=== PATIENT | female | born 1995 | race Caucasian/White ===

== ENCOUNTER 2018-03-16 23:55 | Inpatient (IN) | payer OTHER ==
[2018-03-17] MEDS: DEXTROSE 5%-LACTATED RINGERS 1,000 ML IV SCH ×3 (01:15→14:00)
[2018-03-17 01:32] VITALS: BMI 30.4
--- NOTE | 2018-03-17 01:49 | HP ---
Past Medical History - Primary Care Physician PCP:: Alexus Deal - Admission Chief Complaint: 22 yrs , 39.5/7 , srom since 11.30 pm & onset of UC at same time History of Present Illness: care at , [facility] wt gain 17 lbs panel :08/18/17 O pos, Hbsag neg, Rpr nr, Rubella immune, Hiv neg, gc / ct neg, lead neg, Siickle neg, CF screen neg , Urine culture no growth 12/24/17 : Quantiferon neg, Pngt 76, Rpr nr 02/19/18 Gbs neg, Gc/ct neg, h/h 12.7/37.8, Plt 344, Hiv neg h/o 09/07/17 sono twins : Ababy 9.1 wks, demise . 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 07/24/14 9'.0"in [place] ) ...Term: 2 ...: 0 ...Spon : 0 ...Induced : 0 ...Multiple Gestation: 0 ...LMP: 06/12/17 ... Weeks Gestation by Dates: 39.5 ...EDC by Dates: 03/19/18 ...EDC by Sono: 03/19/18 (39.5 weeks ) Heme/Onc: No: Anemia Infectious Disease: No: HIV, STD's, Tuberculosis Psych: Yes: Depression (not on any meds) - Past Surgical History Past Surgical History: Yes: None Hx Myomectomy: No Hx Transabdominal Cerclage: No - Smoking History Smoking history: Never smoked Have you smoked in the past 12 months: No - Alcohol/Substance Use Hx Alcohol Use: No History of Substance Use: reports: None Home Medications - Allergies Allergies/Adverse Reactions: Allergies Allergy/AdvReac Type Severity Reaction Status Date / Time No Known Drug Allergies Allergy Verified 03/17/18 02:43 shrimp Allergy Severe Difficulty Uncoded 03/17/18 06:48 Breathing - Home Medications Home Medications: Ambulatory Orders Vit/Iron Fum/Folic AC [ Tablet] 1 tab PO DAILY 01/14/18 Physical Exam - Maternity Vital Signs: Vital Signs Temperature 98.1 F 03/17/18 00:54 Pulse Rate 86 03/17/18 00:54 Respiratory Rate 18 03/17/18 00:54 Blood Pressure 138/79 03/17/18 00:54 O2 Sat by Pulse Oximetry (%) Constitutional: Yes: No Distress, Obese Eyes: Yes: WNL HENT: Yes: WNL, Normocephalic Neck: Yes: WNL Cardiovascular: Yes: WNL Lungs: Clear to auscultation Breast(s): Yes: WNL - Abdominal Exam/OB Fundal Height: 34 Number of Fetuses: Single Presentation: Vertex Contractions: Yes Regularity: Irregular Intensity: Mild Monitor Mode: External Heart Rate (range): 130-140 Heart Rate Location: [facility] Category: I Accelerations: Uniform Decelerations: None - Vaginal Exam/OB Vaginal Bleediing: No Speculum Exam: No Dilatation (cm): 1cm Effacement (%): 40 Amniotic Membrane Status: Ruptured (SROM , clear) Nitrazine Test: Positive Amniotic Fluid: Yes: Clear Presentation: Vertex/Position Station: -3 - Physical Exam Musculoskeletal: Yes: WNL Extremities: Yes: WNL. No: Calf Tenderness Edema: No Deep Tendon Reflex Grade: Normal +2 ...Motor Strength: WNL Psychiatric: Yes: WNL, Alert, Oriented - Labs Lab Results: Laboratory Tests 03/17/18 03/17/18 03/17/18 01:53 01:53 01:53 WBC 6.5 RBC 3.53 L Hgb 12.2 Hct 33.9 Plt Count 297 Neutrophils % 50.7 Lymphocytes % 40.9 H PT with INR 10.90 INR 0.96 PTT (Actin FS) 28.7 Sodium Potassium Chloride Carbon Dioxide BUN Random Glucose RPR Titer Blood Type O POSITIVE Antibody Screen Negative 03/17/18 03/17/18 01:53 01:53 WBC RBC Hgb Hct Plt Count Neutrophils % Lymphocytes % PT with INR INR PTT (Actin FS) Sodium 140 Potassium 3.8 Chloride 108 H Carbon Dioxide 20 L BUN 7 Random Glucose 106 RPR Titer Nonreactive Blood Type Antibody Screen Problem List - Problems (1) with 39 completed weeks gestation Code(s): Z3A.39 - 39 WEEKS GESTATION OF (2) SROM (spontaneous rupture of membranes) Code(s): LYI6372 - (3) Obesity (BMI 30.0-34.9) Code(s): E66.9 - OBESITY, UNSPECIFIED Assessment/Plan 22 yrs , 39.5/7 weeks SROM , states uc irregular. gbs neg , possible IUGR Plan trial of vaginal delivery. cervidil & or pitocin induction . 100 pm 03/17/18 cx 1 cm /50 %/MR/Vx -3 / FHR cat-1 , ireegular . pt ambulating. Plan transfer the labor management to Doctor environmental health and safety manager Dr Butler
[2018-03-17 02:16] LABS: BASO % 0.7 % (0-2.0); EOS % 0.7 % (0-4.5); HEMATOCRIT 33.9 % (32.4-45.2); HEMOGLOBIN 12.2 GM/dL (10.7-15.3); LYMPH % 40.9 % (8-40); MCH 34.6 pg (25.7-33.7); MEAN CELL VOLUME 95.9 fl (80-96); MEAN PLT VOLUME 7.9 fl (7.5-11.1); NEUT % 50.7 % (42.8-82.8); PLATELET COUNT 297 K/MM3 (134-434); RBC 3.53 M/mm3 (3.60-5.2); RDW 12.1 % (11.6-15.6); WHITE BLOOD COUNT 6.5 K/mm3 (4.0-10.0)
[2018-03-17 02:26] LABS: INR 0.96 (0.82-1.09); PROTHROMBIN TIME (PATIENT) 10.9 SEC (9.7-13.0)
[2018-03-17] MEDS ORDERED: SODIUM PHOSPHATE/NA BIPHOS 133 ML ENEMA PR ONE (02:27)
[2018-03-17 02:29] LABS: ACTIVATED PTT 28.7 SECONDS (26.9-34.4)
[2018-03-17 02:35] LABS: ANION GAP 12 (8-16); BLOOD UREA NITROGEN 7 mg/dL (7-18); CALCIUM 8.6 mg/dL (8.5-10.1); CHLORIDE 108 mmol/L (98-107); CO2 20 mmol/L (21-32); CREATININE 0.5 mg/dL (0.55-1.02); GLUCOSE,RANDOM 106 mg/dL (74-106); POTASSIUM 3.8 mmol/L (3.5-5.1); SODIUM 140 mmol/L (136-145)
[2018-03-17] MEDS ORDERED: DINOPROSTONE 10 MG VAGINAL SUPPOSITORY VG ONE (02:40)
[2018-03-17] MEDS ORDERED: OXYTOCIN 30 UNITS in 0.9% NS 30 UNIT/500 ML INFUS.BAG IVPB ONE (15:48)
[2018-03-17] MEDS ORDERED: OXYTOCIN 30 UNITS in 0.9% NS 30 UNIT/500 ML INFUS.BAG IVPB SCH (16:00)
[2018-03-17] MEDS ORDERED: AMPICILLIN SODIUM 2 GM VIAL ONE (16:46)
[2018-03-17] MEDS ORDERED: AMPICILLIN - 2 GM in SODIUM CHLORIDE 100 ML IVPB ONE (17:30)
[2018-03-17] MEDS ORDERED: PROMETHAZINE HCL 25 MG/1 ML VIAL ONE (21:11)
[2018-03-17] MEDS ORDERED: BUTORPHANOL TARTRATE 1 MG/ML VIAL ONE ×2 (21:11)
[2018-03-17] MEDS: AMPICILLIN - 1 GM in SODIUM CHLORIDE 100 ML IVPB SCH (21:30)
[2018-03-17] MEDS ORDERED: BUTORPHANOL TARTRATE 1 MG/ML VIAL IM PRN (21:31)
[2018-03-17] MEDS ORDERED: PROMETHAZINE HCL 25 MG/1 ML VIAL IM PRN (21:32)
[2018-03-18] MEDS ORDERED: LIDOCAINE HCL 1% PRESERVATIVE FREE - 30ML VIAL ONE (00:59)
[2018-03-18] MEDS ORDERED: OXYTOCIN 20 UNITS in 0.9% NS 20 UNIT/1,000 ML INFUS.BAG IV ONE ×2 (00:59→03:01)
[2018-03-18] MEDS ORDERED: WITCH HAZEL 50% (TUCKS) 40 PAD/JAR PAD TP PRN (01:36)
[2018-03-18] MEDS ORDERED: BENZOCAINE 20% 57 GM BOTTLE TP PRN (01:36)
[2018-03-18] MEDS ORDERED: BISACODYL 10 MG SUPP.RECT RC PRN (01:36)
[2018-03-18] MEDS ORDERED: BENZOCAINE 28 GM HEMORRHOIDAL OINTMENT TP PRN (01:36)
[2018-03-18] MEDS ORDERED: METHYLERGONOVINE MALEATE 0.2 MG/1 ML AMP IM PRN (01:36)
--- NOTE | 2018-03-18 01:39 | PN ---
Delivery - Delivery Vaginal Delivery: Spontaneous Type of Anesthesia: Local Episiotomy/Laceration: 1st degree EBL (cc): 300 Delivery, Single - Feeding Plan Initial Plan: Elected not to breastfeed exclusively throughout hospitalization Remarks - Remarks Remarks: Normal spontaneous vaginal delivery of a live infant girl over first degree laceration. Nose / Oropharynx suctioned @ perineum. Cord clamped and cut. Placenta expelled spontaneously intact. Laceration repaired with 2.0 Biosyn.
[2018-03-18] MEDS ORDERED: OXYTOCIN 20 UNITS in 0.9% NS 20 UNIT/1,000 ML INFUS.BAG IV SCH (01:45)
[2018-03-18] MEDS ORDERED: IBUPROFEN 600 MG TABLET (FP) PO ONE (02:44)
[2018-03-18] MEDS ORDERED: ACETAMINOPHEN 325 MG TABLET (FP) ONE (02:44)
[2018-03-18] MEDS: IBUPROFEN 600 MG TABLET (FP) PO PRN ×2 (02:55→12:41)
[2018-03-18] MEDS: ACETAMINOPHEN 325 MG TABLET (FP) PO PRN (02:55)
[2018-03-18] MEDS: DEXTROSE 5%-LACTATED RINGERS 1,000 ML IV SCH (04:52)
[2018-03-18] MEDS: AMPICILLIN - 1 GM in SODIUM CHLORIDE 100 ML IVPB SCH (06:39)
[2018-03-18] MEDS: FERROUS SO4 325 MG TABLET (FP) PO SCH ×3 (07:44→16:52)
[2018-03-18] MEDS: PRENATAL VITAMINS W/ FOLIC ACID TABLET (FP) PO SCH (09:56)
[2018-03-19] MEDS: IBUPROFEN 600 MG TABLET (FP) PO PRN ×3 (04:08→22:55)
[2018-03-19] MEDS: ACETAMINOPHEN 325 MG TABLET (FP) PO PRN ×3 (04:09→22:55)
[2018-03-19 08:16] LABS: BASO % 0.7 % (0-2.0); EOS % 0.9 % (0-4.5); HEMATOCRIT 32.5 % (32.4-45.2); HEMOGLOBIN 11.7 GM/dL (10.7-15.3); LYMPH % 30.4 % (8-40); MCH 34.7 pg (25.7-33.7); MCHC 35.9 g/dl (32.0-36.0); MEAN CELL VOLUME 96.9 fl (80-96); MONO % 5.6 % (3.8-10.2); NEUT % 62.4 % (42.8-82.8); PLATELET COUNT 243 K/MM3 (134-434); RBC 3.36 M/mm3 (3.60-5.2); RDW 12.6 % (11.6-15.6); WHITE BLOOD COUNT 10.5 K/mm3 (4.0-10.0)
[2018-03-19] MEDS ORDERED: DIPHTH,PERTUSS(ACELL),TET 0.5 ML DISP.SYRIN IM ONE (10:00)
[2018-03-19] MEDS ORDERED: FLU VACC QS2017-18 36MOS UP/PF 60 MCG/0.5 ML SYRINGE IM ONE (10:00)
[2018-03-19] MEDS: FERROUS SO4 325 MG TABLET (FP) PO SCH ×3 (10:36→17:05)
[2018-03-19] MEDS: PRENATAL VITAMINS W/ FOLIC ACID TABLET (FP) PO SCH (10:48)
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
[2018-03-19] MEDS ORDERED: SENNOSIDES/DOCUSATE COMBO (SENNA PLUS) TABLET (UD) PO PRN (22:00)
[2018-03-20] MEDS: FERROUS SO4 325 MG TABLET (FP) PO SCH ×2 (08:17→11:45)
[2018-03-20 08:37] VITALS: BP 119/67; PULSE 72; TEMP 98.2
[2018-03-20] MEDS: PRENATAL VITAMINS W/ FOLIC ACID TABLET (FP) PO SCH (09:03)
== END 2018-03-20 12:10 | disposition home or self-care (01) | DRG 560 ==
LOC: JLDR 23:55 → J3W 03-18 03:30
PROVIDERS: ADMIT Obstetrics & Gynecology; ATTEND Obstetrics & Gynecology
PROC: 3E0P7VZ Introduction of Hormone into Female Reproductive, Via Natural or Artificial Opening (ICD-10-PCS; 2018-03-17)
PROC: 0HQ9XZZ Repair Perineum Skin, External Approach (ICD-10-PCS; principal; 2018-03-18)
PROC: 0W8NXZZ Division of Female Perineum, External Approach (ICD-10-PCS; 2018-03-18)
PROC: 10E0XZZ Delivery of Products of Conception, External Approach (ICD-10-PCS; 2018-03-18)
DX: O70.0 First degree perineal laceration during delivery (principal); Z3A.39 39 weeks gestation of pregnancy; O99.213 Obesity complicating pregnancy, third trimester; Z68.30 Body mass index [BMI] 30.0-30.9, adult; E66.9 Obesity, unspecified; Z37.0 Single live birth
CPT/HCPCS: 36415; 59409; 80048; 85025; 85610; 85730; 86593; 86850; 86900; 86901; 90686; 90715; G0008

== ENCOUNTER 2018-04-17 12:50 | Emergency (ER) | payer OTHER ==
[2018-04-17 12:56] VITALS: BMI 28.7
--- NOTE | 2018-04-17 13:00 | PDOC ---
History of Present Illness - General Chief Complaint: Pain Stated Complaint: PAIN Time Seen by Provider: 04/17/18 12:59 - History of Present Illness Initial Comments: 04/17/18 12:59 Ms. Crow Blancas is a 23 yo female w/ no pmh who presents for evaluation of 1 week history of intermittent constipation (last BM 3 days ago) and severe rectal pain when attempting to urinate or defecate. Patient was evaluated in urgent care earlier today and sent here for further evaluation. Patient is and gave to her latest child approximately 1 month ago. The patient denies chest pain, shortness of breath, headache and dizziness. Denies fever, chills, nausea, vomit, and diarrhea. Denies dysuria, frequency, urgency and hematuria. Allergies: NKDA Past History - Past Medical History Allergies/Adverse Reactions: Allergies Allergy/AdvReac Type Severity Reaction Status Date / Time No Known Drug Allergies Allergy Verified 04/17/18 12:52 shrimp Allergy Severe Difficulty Uncoded 04/17/18 12:52 Breathing Home Medications: Ambulatory Orders NK [No Known Home Medication] 04/17/18 Asthma: No Cancer: No Cardiac Disorders: No COPD: No Diabetes: No HTN: No Seizures: No Thyroid Disease: No - Suicide/Smoking/Psychosocial Hx Smoking History: Never smoked Have you smoked in the past 12 months: No Information on smoking cessation initiated: No Hx Alcohol Use: No Drug/Substance Use Hx: No Substance Use Type: None Hx Substance Use Treatment: No Review of Systems - Review of Systems Comments:: 04/17/18 13:00 GENERAL/CONSTITUTIONAL: No fever or chills. No weakness. HEAD, EYES, EARS, NOSE AND THROAT: No change in vision. No ear pain or discharge. No sore throat. CARDIOVASCULAR: No chest pain or shortness of breath RESPIRATORY: No cough, wheezing, or hemoptysis. GASTROINTESTINAL: +Rectal pain while attempting to urinate/defacate as described. No nausea, vomiting, or diarrhea. GENITOURINARY: No dysuria, frequency, or change in urination. MUSCULOSKELETAL: No joint or muscle swelling or pain. No neck or back pain. SKIN: No rash NEUROLOGIC: No headache, vertigo, loss of consciousness, or change in strength/ sensation. ENDOCRINE: No increased thirst. No abnormal weight change HEMATOLOGIC/LYMPHATIC: No anemia, easy bleeding, or history of blood clots. ALLERGIC/IMMUNOLOGIC: No hives or skin allergy. *Physical Exam - Vital Signs Last Vital Signs Temp Pulse Resp BP Pulse Ox 98.3 F 90 18 130/77 100 04/17/18 12:54 04/17/18 12:54 04/17/18 12:54 04/17/18 12:54 04/17/18 12:54 - Physical Exam Comments: 04/17/18 13:00 GENERAL: Awake, alert, and fully oriented, in no acute distress HEAD: No signs of trauma, normocephalic, atraumatic EYES: PERRLA, EOMI, sclera anicteric, conjunctiva clear ENT: Auricles normal inspection, hearing grossly normal, nares patent, oropharynx clear without exudates. Moist mucosa NECK: Normal ROM, supple, no lymphadenopathy, JVD, or masses LUNGS: No distress, speaks full sentences, clear to auscultation bilaterally HEART: Regular rate and rhythm, normal S1 and S2, no murmurs, rubs or gallops, peripheral pulses normal and equal bilaterally. ABDOMEN: Soft, nontender, normoactive bowel sounds. No guarding, no rebound. No masses EXTREMITIES: Normal inspection, Normal range of motion, no edema. No clubbing or cyanosis. NEUROLOGICAL: Cranial nerves II through XII grossly intact. Normal speech, normal gait, no focal sensorimotor deficits SKIN: Warm, Dry, normal turgor, no rashes or lesions noted. RECTAL: Patient reporting severe pain during rectal exam. Small pinpoint skin tag noted to 12 o'clock position. No visible hemorrhoids or fissures. ED Treatment Course - LABORATORY CBC & Chemistry Diagram: 04/17/18 13:55 04/17/18 13:55 Medical Decision Making - Medical Decision Making 04/17/18 15:18 Ms. Crow Blancas is a 23 yo female w/ no significant pmh who presents for evaluation of constipation and pain. With exam concerning for pain on rectal examination, CT abdomen/pelvis ordered for evaluation of possible perianal abscess. 04/17/18 17:03 CT revealed "moderate amount of fecal residue in distal sigmoid colon compatible w/ constipation; cannot rule out impacation. Suggestion of mild thickening of rectosigmoid junction wall. Also, minimal perianal stranding w/ out gross evidence of collection or abcess." 04/17/18 17:28 Discharging patient to home w/ instructions for constipation relief. Patient will follow-up with PCP next week for further evaluation. *DC/Admit/Observation/Transfer Diagnosis at time of Disposition: Constipation Qualifiers: Constipation type: unspecified constipation type Qualified Code(s): K59.00 - Constipation, unspecified - Discharge Dispostion Disposition: HOME - Referrals Referrals: Josefina Starr NP [Primary Care Provider] - - Patient Instructions Printed Discharge Instructions: DI for Constipation Additional Instructions: Please follow-up with your primary care provider on Thursday for further evaluation. Return to ER if any increase in pain, fever, chills, bleeding, or other concerning symptoms. Use below treatment for constipation relief. 1. Drink copious amounts of water 2. Take over the counter fiber supplements as tolerated 3. Take Miralax daily following package instructions for the next two weeks or until stooling normally. We hope you feel better soon. Por favor haz nestor ambrose con guzman doctora primaria para mirela Cynthia para nestor evaluacin adicional. Regrese al departamento de emergencias si el dolor aumenta , o si desarollas fiebre, escalofros, sangrado o otros sntomas preocupantes. Usa el tratamiento explicado abajo para el alivio del estreimiento. 1. Arianna copiosas cantidades de agua 2. [place] los suplementos de fibra que se puede comprar en la farmacia segn lo tolera. 3. [place] Miralax diariamente siguiendo las instrucciones del paquete rosio las prximas dos semanas o hasta que se evacue normalmente. Esperamos que te sientas mejor pronto. Print Language: LATVIAN - Post Discharge Activity
[2018-04-17 14:06] LABS: BASO % 0.9 % (0-2.0); EOS % 0.4 % (0-4.5); HEMATOCRIT 38.4 % (32.4-45.2); HEMOGLOBIN 13.4 GM/dL (10.7-15.3); LYMPH % 46.2 % (8-40); MCH 33.1 pg (25.7-33.7); MEAN CELL VOLUME 94.5 fl (80-96); MEAN PLT VOLUME 7.4 fl (7.5-11.1); MONO % 4.9 % (3.8-10.2); NEUT % 47.6 % (42.8-82.8); PLATELET COUNT 341 K/MM3 (134-434); RBC 4.06 M/mm3 (3.60-5.2); RDW 11.6 % (11.6-15.6); WHITE BLOOD COUNT 4.7 K/mm3 (4.0-10.0)
[2018-04-17] MEDS ORDERED: ACETAMINOPHEN 500 MG TABLET (FP) PO ONE (14:06)
[2018-04-17] MEDS ORDERED: ACETAMINOPHEN 325 MG TABLET (FP) ONE (14:14)
[2018-04-17 14:35] LABS: ALBUMIN 4.3 g/dl (3.4-5.0); ALK PHOS 109 U/L (45-117); ANION GAP 8 (8-16); BILIRUBIN,TOTAL 0.3 mg/dL (0.2-1.0); BLOOD UREA NITROGEN 11 mg/dL (7-18); CALCIUM 9.2 mg/dL (8.5-10.1); CHLORIDE 107 mmol/L (98-107); CO2 26 mmol/L (21-32); CREATININE 0.9 mg/dL (0.55-1.02); GLUCOSE,RANDOM 83 mg/dL (74-106); POTASSIUM 4.3 mmol/L (3.5-5.1); SGOT/AST 16 U/L (15-37); SGPT/ALT 17 U/L (12-78); SODIUM 141 mmol/L (136-145); TOT PROT 8.2 g/dl (6.4-8.2)
--- NOTE | 2018-04-17 15:09 | PDOC ---
Attending Attestation - HPI HPI: 04/17/18 15:12 The patient is a 23 year old female with a significant PMH of prior exertional hemorrhoid who presents to the emergency department with 1 week of constipation and difficulty urinating and 3 days of of rectal bleeding. The patient reports intermittent constipation over the past week which has become constant over the past 3 days, and notes padmini red rectal bleeding and a burning sensation associated with exertion when attempting to move her bowels. She also notes she has had difficulty urinating secondary to cramping, The patient denies hematuria. She denies fevers or chills. She denies nausea, vomiting, or diarrhea. Allergies: NKDA PCP: Dr. Josefina Starr - Physicial Exam PE: 04/17/18 15:13 Vitals: Triage Vital signs reviewed General Appearance: no acute distress, well nourished well developed, Cardiac: Regular rate and rhythm, no murmurs, no rubs, no gallops, Lungs: Clear to auscultation bilateral, good air movement bilaterally, Abdomen: Soft, nondistended, normal bowel sounds, nontender to palpation Rectal: Normal. Extremities: Full range of motion to all extremities, no cyanosis, clubbing, or edema Skin: Warm and dry, no rashes or lesions, no petechiae Neuro: AOX3; Cranial Nerves 2-12 grossly intact, Strength intact to all extremities, Sensation intact to all extremities Psych: normal mood, normal affect - Medical Decision Making 04/17/18 15:12 The patient is a 23 year old female with a significant PMH of prior exertional hemorrhoid who presents to the emergency department with 1 week of constipation and difficulty urinating and 3 days of of rectal bleeding. The patient reports intermittent constipation over the past week which has become constant over the past 3 days, and notes padmini red rectal bleeding and a burning sensation associated with exertion when attempting to move her bowels. She also notes she has had difficulty urinating secondary to cramping, The patient denies hematuria. She denies fevers or chills. She denies nausea, vomiting, or diarrhea. Allergies: NKDA PCP: Dr. Josefina Starr <Adolfo Burks - Last Filed: 04/17/18 15:13> - Resident Resident Name: Prosper Napier - ED Attending Attestation I have performed the following: I have examined & evaluated the patient, The case was reviewed & discussed with the resident, I agree w/resident's findings & plan, Exceptions are as noted - Medical Decision Making 23 years old status post with severe rectal pain on examination. External fissure noted. Given tenderness on internal examination decision made to perform CT. CT abdomen and pelvis demonstrate moderate constipation with no evidence of perianal abscess Patient placed on aggressive stool softener regimen and will follow up with her primary care provider. Patient advised multiple times not to breast-feed given that she was given IV contrast for the next 24 hours Findings, need for follow-up, strict return instructions discussed with patient. <Laureano Leon - Last Filed: 04/17/18 18:27>
[2018-04-17] MEDS ORDERED: LIDOCAINE HCL 2% JELLY (30 ML/TUBE) TP ONE (15:39)
[2018-04-17] MEDS ORDERED: KETOROLAC TROMETHAMINE 15 MG/ML VIAL IVPUSH ONE (15:39)
[2018-04-17] MEDS ORDERED: LIDOCAINE HCL 2% JELLY (5 ML/TUBE) ONE (15:45)
[2018-04-17] MEDS ORDERED: KETOROLAC TROMETHAMINE 15 MG/ML VIAL ONE (15:46)
[2018-04-17 17:19] VITALS: BP 105/58; PULSE 68; TEMP 98.6
== END 2018-04-17 17:45 | disposition home or self-care (01) ==
LOC: JER 12:50
PROC: 3E0333Z Introduction of Anti-inflammatory into Peripheral Vein, Percutaneous Approach (ICD-10-PCS; principal; 2018-04-17)
DX: K59.00 Constipation, unspecified (principal); O87.2 Hemorrhoids in the puerperium
CPT/HCPCS: 36415; 74177-TC; 80053; 82272; 84703; 85025; 96374; 99282-25

== ENCOUNTER 2020-09-02 12:51 | Emergency (ER) | payer OTHER ==
[2020-09-02 12:57] VITALS: BP 117/68; PULSE 99; TEMP 98; BMI 30.9
--- NOTE | 2020-09-02 13:36 | PDOC ---
History of Present Illness - General Chief Complaint: Vaginal Sxs Stated Complaint: 24WKS/HEMATURIA Time Seen by Provider: 09/02/20 13:20 History Source: Patient Exam Limitations: No Limitations - History of Present Illness Initial Comments: 09/02/20 13:30 Patient is a 25-year-old female with no past medical history here with complaints of frequency and dysuria x2 days. States she is had a foul odor when she urinates. Reports mild lower back pain now 01/30. No history of kidney stones. She is 24 weeks G4, P3 was had OB care. She denies vaginal bleeding, abdominal pain, fever, chills, nausea, vomiting. She was seen in urgent care prior to this visit today and was sent here for evaluation. PMD: Dr. Fournier PMHX: as above PSOCHX: neg cig, drug, etoh ALL: NKDA GENERAL/CONSTITUTIONAL: [No fever or chills. No weakness. No weight change.] HEAD, EYES, EARS, NOSE AND THROAT: [No change in vision. No ear pain or discharge. No sore throat.] CARDIOVASCULAR: [No chest pain or shortness of breath.] RESPIRATORY: [No cough, wheezing, or hemoptysis.] GASTROINTESTINAL: [No nausea, vomiting, diarrhea or constipation. No rectal bleeding.] GENITOURINARY: [(+) dysuria, frequency, or change in urination.] MUSCULOSKELETAL: [No joint or muscle swelling or pain. No neck or back pain.] SKIN AND BREASTS: [No rash or easy bruising.] NEUROLOGIC: [No headache, vertigo, loss of consciousness, or loss of sensation.] PSYCHIATRIC: [No depression or anxiety.] ENDOCRINE: [No increased thirst. No abnormal weight change.] HEMATOLOGIC/LYMPHATIC: [No anemia, easy bleeding, or history of blood clots.] ALLERGIC/IMMUNOLOGIC: [No hives or skin allergy. No latex allergy.] GENERAL: [The patient is awake, alert, and fully oriented, in no acute distress.] HEAD: [Normal with no signs of trauma.] EYES: [Pupils equal, round and reactive to light, extraocular movements intact, sclera anicteric, conjunctiva clear.] ENT: [Ears normal, nares patent, oropharynx clear without exudates. Moist mucous membranes.] NECK: [Normal range of motion, supple without lymphadenopathy, JVD, or masses.] LUNGS: [Breath sounds equal, clear to auscultation bilaterally. No wheezes, and no crackles.] HEART: [Regular rate and rhythm, normal S1 and S2 without murmur, rub.] ABDOMEN: [Soft, nontender, normoactive bowel sounds. No guarding, no rebound. No masses, (+) gravid 24 weeks.] EXTREMITIES: [Normal range of motion, no edema. No clubbing or cyanosis. No cords, erythema, or tenderness.] NEUROLOGICAL: [Cranial nerves II through XII grossly intact. Normal speech, normal gait.] PSYCH: [Normal mood, normal affect.] SKIN: [Warm, Dry, normal turgor, no rashes or lesions noted.] Past History - Medical History Allergies/Adverse Reactions: Allergies Allergy/AdvReac Type Severity Reaction Status Date / Time No Known Drug Allergies Allergy Verified 09/02/20 12:57 shrimp Allergy Severe Difficulty Uncoded 09/02/20 12:57 Breathing Home Medications: Ambulatory Orders Cephalexin [Keflex] 500 mg PO BID #14 capsule 09/02/20 Asthma: No Cancer: No Cardiac Disorders: No COPD: No Diabetes: No HTN: No Seizures: No Thyroid Disease: No - Reproductive History Is Patient Now?: Yes - Psycho-Social/Smoking History Smoking History: Never smoked Have you smoked in the past 12 months: No *Physical Exam - Vital Signs Last Vital Signs Temp Pulse Resp BP Pulse Ox 98 F 99 H 18 117/68 99 09/02/20 12:53 09/02/20 12:53 09/02/20 12:53 09/02/20 12:53 09/02/20 12:53 Medical Decision Making - Medical Decision Making 13:30 Patient is a 25-year-old female with no past medical history here with complaints of frequency and dysuria x2 days. States she is had a foul odor when she urinates. Reports mild lower back pain now 01/30. No history of kidney stones. She is 24 weeks G4, P3 was had OB care. She denies vaginal bleeding, abdominal pain, fever, chills, nausea, vomiting. She was seen in urgent care prior to this visit today and was sent here for evaluation. Symptoms consistent with UTI. UA/Urine culture 09/02/20 14:59 Urine reviewed health small bacteria on the urine. Because patient is symptomatic we will treat for UTI. Keflex 500 mg p.o. given. I discussed the physical exam findings, ancillary test results and final diagnoses with the patient. I answered all of the patient's questions. The patient was satisfied with the care received and felt comfortable with the discharge plan and treatment plan. The Patient agrees to follow up with the primary care physician within 24-72 hours. Discharge - Discharge Information Problems reviewed: Yes Clinical Impression/Diagnosis: UTI in Qualifiers: Trimester: second trimester Qualified Code(s): O23.42 - Unspecified infection of urinary tract in , second trimester Condition: Stable Disposition: HOME - Additional Discharge Information Prescriptions: Cephalexin [Keflex] 500 mg PO BID #14 capsule - Follow up/Referral Referrals: Paco Fournier MD [Primary Care Provider] - - Patient Discharge Instructions Patient Printed Discharge Instructions: DI for Urinary Tract Infection (UTI) Additional Instructions: Your Discharge Instructions: You must call primary care physician within 24 hours to arrange follow-up. Return to the Emergency Department with any new, persistent or worsening s ymptoms, for fever, chills, SOB, dizziness or any other concerning changes that may occur. You must follow-up with your [facility] doctor in the next 1 to 2 days for further evaluation. Your culture of the urine was sent you will be called if your antibiotic needs to be changed. - Post Discharge Activity
[2020-09-02 14:35] LABS: EPI CELLS 6 /uL (0-25.1); HYALINE CASTS 0 /uL (0-3.1); URINE APPEARANCE CLEAR; URINE BACTERIA 217 /uL (0-1359); URINE BILIRUBIN NEGATIVE (NEGATIVE); URINE COLOR YELLOW; URINE GLUCOSE (UA) NEGATIVE (NEGATIVE); URINE KETONE NEGATIVE (NEGATIVE); URINE LEUK ESTERASE NEGATIVE (NEGATIVE); URINE NITRITE NEGATIVE (NEGATIVE); URINE PROTEIN NEGATIVE (NEGATIVE); URINE RBC 9 /uL (0-23.9); URINE UROBILINOGEN 0.2 mg/dL (0.2-1.0); URINE WBC 3 /uL (0-25.8)
[2020-09-02] MEDS ORDERED: CEPHALEXIN MONOHYDRATE 500 MG CAPSULE (UD) PO ONE (14:59)
[2020-09-02] MEDS ORDERED: CEPHALEXIN MONOHYDRATE 500 MG CAPSULE (UD) ONE (15:08)
== END 2020-09-02 15:14 | disposition home or self-care (01) ==
LOC: JER 12:51
DX: O23.42 Unspecified infection of urinary tract in pregnancy, second trimester (principal)
CPT/HCPCS: 81003; 87086; 99284-25

== ENCOUNTER 2020-12-18 20:13 | Inpatient (IN) | payer OTHER ==
[2020-12-18] MEDS ORDERED: ELECTROLYTE-148 SOLN 1,000 ML IV SCH (20:45)
[2020-12-18 21:11] LABS: BASO % 0.6 % (0-2.0); EOS % 0.6 % (0-4.5); HEMATOCRIT 36.8 % (32.4-45.2); HEMOGLOBIN 12.9 GM/dL (10.7-15.3); MCH 33.4 pg (25.7-33.7); MEAN CELL VOLUME 95.4 fl (80-96); MEAN PLT VOLUME 7.7 fl (7.5-11.1); MONO % 6.4 % (3.8-10.2); NEUT % 57.4 % (42.8-82.8); PLATELET COUNT 284 K/MM3 (134-434); RBC 3.86 M/mm3 (3.60-5.2); RDW 13.1 % (11.6-15.6); WHITE BLOOD COUNT 5.6 K/mm3 (4.0-10.0)
[2020-12-18 21:13] LABS: PROTHROMBIN TIME (PATIENT) 12.3 SEC (9.7-13.0)
[2020-12-18 21:16] LABS: ACTIVATED PTT 28.6 SECONDS (25.2-36.5)
[2020-12-18 21:26] LABS: POTASSIUM 3.6 mmol/L (3.5-5.1)
[2020-12-18 21:28] LABS: CALCIUM 8.4 mg/dL (8.5-10.1)
[2020-12-18 21:32] LABS: CREATININE 0.8 mg/dL (0.55-1.3)
[2020-12-18] MEDS ORDERED: FENTANYL/BUPIVACAINE/NS/PF - PCEA - 50 ML DISP.SYRIN EP ONE (21:40)
[2020-12-18] MEDS ORDERED: NALOXONE HCL 0.4 MG/ML VIAL IVPUSH PRN (22:21)
[2020-12-18] MEDS ORDERED: FENTANYL/BUPIVACAINE/NS/PF - PCEA - 50 ML DISP.SYRIN EP SCH (22:30)
[2020-12-18 22:48] VITALS: BMI 34.2
[2020-12-18 23:09] LABS: EPI CELLS 25 /uL (0-25.1); HYALINE CASTS 1 /uL (0-3.1); URINE APPEARANCE CLEAR; URINE BACTERIA 1039 /uL (0-1359); URINE BILIRUBIN NEGATIVE (NEGATIVE); URINE COLOR YELLOW; URINE GLUCOSE (UA) NEGATIVE (NEGATIVE); URINE KETONE NEGATIVE (NEGATIVE); URINE LEUK ESTERASE NEGATIVE (NEGATIVE); URINE NITRITE NEGATIVE (NEGATIVE); URINE PROTEIN NEGATIVE (NEGATIVE); URINE RBC 13 /uL (0-23.9); URINE UROBILINOGEN 0.2 mg/dL (0.2-1.0); URINE WBC 30 /uL (0-25.8)
[2020-12-19] MEDS ORDERED: LIDOCAINE HCL 1% PRESERVATIVE FREE - 30ML VIAL ONE (00:08)
[2020-12-19] MEDS ORDERED: OXYTOCIN 20 UNITS in 0.9% NS 20 UNIT/1,000 ML INFUS.BAG IV ONE ×2 (00:08→02:56)
[2020-12-19] MEDS ORDERED: OXYTOCIN 30 UNITS in 0.9% NS 30 UNIT/500 ML INFUS.BAG IVPB ONE (00:21)
[2020-12-19] MEDS: OXYTOCIN 20 UNITS in 0.9% NS 20 UNIT/1,000 ML INFUS.BAG IV SCH ×2 (00:31→03:00)
[2020-12-19] MEDS ORDERED: BENZOCAINE 20% 57 GM BOTTLE TP PRN (00:59)
[2020-12-19] MEDS ORDERED: IBUPROFEN 600 MG TABLET (FP) PO PRN (00:59)
[2020-12-19] MEDS ORDERED: ACETAMINOPHEN 325 MG TABLET (FP) PO PRN (00:59)
[2020-12-19] MEDS ORDERED: METHYLERGONOVINE MALEATE 0.2 MG/1 ML AMP IM PRN (00:59)
[2020-12-19] MEDS ORDERED: BENZOCAINE 28 GM HEMORRHOIDAL OINTMENT TP PRN (00:59)
[2020-12-19] MEDS ORDERED: WITCH HAZEL 50% (TUCKS) 40 PAD/JAR PAD TP PRN (00:59)
[2020-12-19] MEDS ORDERED: BISACODYL 10 MG SUPP.RECT RC PRN (00:59)
[2020-12-19] MEDS: FERROUS SO4 325 MG TABLET (FP) PO SCH ×2 (08:04→17:10)
[2020-12-19] MEDS: PRENATAL VITAMINS W/ FOLIC ACID TABLET (FP) PO SCH (09:42)
[2020-12-19 14:40] VITALS: PULSE 76
[2020-12-19 21:03] VITALS: TEMP 98.3
[2020-12-20 08:33] LABS: BASO % 0.6 % (0-2.0); EOS % 2.3 % (0-4.5); HEMATOCRIT 35.2 % (32.4-45.2); HEMOGLOBIN 12.3 GM/dL (10.7-15.3); LYMPH % 38.2 % (8-40); MCH 33.7 pg (25.7-33.7); MCHC 35.1 g/dl (32.0-36.0); MEAN PLT VOLUME 7.8 fl (7.5-11.1); MONO % 6.5 % (3.8-10.2); NEUT % 52.4 % (42.8-82.8); PLATELET COUNT 245 K/MM3 (134-434); RBC 3.67 M/mm3 (3.60-5.2); RDW 12.9 % (11.6-15.6); WHITE BLOOD COUNT 5.8 K/mm3 (4.0-10.0)
[2020-12-20] MEDS: PRENATAL VITAMINS W/ FOLIC ACID TABLET (FP) PO SCH (09:30)
[2020-12-20] MEDS: FERROUS SO4 325 MG TABLET (FP) PO SCH (09:30)
[2020-12-20 10:43] VITALS: BP 130/75
[2020-12-20] MEDS ORDERED: SENNOSIDES/DOCUSATE COMBO (SENNA PLUS) TABLET (UD) PO PRN (22:00)
== END 2020-12-20 12:40 | disposition home or self-care (01) | DRG 560 ==
LOC: JLDR 20:13 → J3W 12-19 04:03
PROVIDERS: ADMIT Obstetrics & Gynecology; ATTEND Obstetrics & Gynecology
PROC: 10E0XZZ Delivery of Products of Conception, External Approach (ICD-10-PCS; principal; 2020-12-19)
PROC: 10907ZC Drainage of Amniotic Fluid, Therapeutic from Products of Conception, Via Natural or Artificial Opening (ICD-10-PCS; 2020-12-19)
DX: O99.214 Obesity complicating childbirth (principal); E66.9 Obesity, unspecified; O22.43 Hemorrhoids in pregnancy, third trimester; K59.09 Other constipation; Z37.0 Single live birth; Z86.59 Personal history of other mental and behavioral disorders; Z86.19 Personal history of other infectious and parasitic diseases; Z3A.39 39 weeks gestation of pregnancy; Z91.013 Allergy to seafood
CPT/HCPCS: 36415; 59409; 80048; 81003; 85025; 85610; 85730; 86780; 86850; 86900; 86901

== ENCOUNTER 2021-03-15 12:26 | Emergency (ER) | payer OTHER ==
[2021-03-15 12:41] VITALS: TEMP 97.9; BMI 30.8
[2021-03-15] MEDS ORDERED: MECLIZINE HCL 25 MG TABLET (FP) PO ONE (13:01)
[2021-03-15] MEDS ORDERED: SODIUM CHLORIDE 1,000 ML IV STA ×2 (13:01→16:31)
[2021-03-15 13:33] LABS: BASO % 1.1 % (0-2.0); EOS % 1.4 % (0-4.5); HEMATOCRIT 37.8 % (32.4-45.2); HEMOGLOBIN 13.5 GM/dL (10.7-15.3); LYMPH % 51.6 % (8-40); MCH 33.4 pg (25.7-33.7); MCHC 35.7 g/dl (32.0-36.0); MEAN CELL VOLUME 93.7 fl (80-96); MONO % 8.1 % (3.8-10.2); NEUT % 37.8 % (42.8-82.8); PLATELET COUNT 417 K/MM3 (134-434); RBC 4.03 M/mm3 (3.60-5.2); RDW 12.2 % (11.6-15.6); WHITE BLOOD COUNT 5.2 K/mm3 (4.0-10.0)
[2021-03-15 13:34] LABS: URINE APPEARANCE CLEAR; URINE BILIRUBIN NEGATIVE (NEGATIVE); URINE COLOR YELLOW; URINE GLUCOSE (UA) NEGATIVE (NEGATIVE); URINE KETONE NEGATIVE (NEGATIVE); URINE LEUK ESTERASE NEGATIVE (NEGATIVE); URINE NITRITE NEGATIVE (NEGATIVE); URINE PROTEIN NEGATIVE (NEGATIVE); URINE UROBILINOGEN 0.2 mg/dL (0.2-1.0)
[2021-03-15] MEDS ORDERED: MECLIZINE HCL 25 MG TABLET (FP) ONE (13:34)
[2021-03-15 13:37] LABS: HCG,QUALITATIVE URINE Negative
[2021-03-15 13:58] LABS: CALCIUM 9.6 mg/dL (8.5-10.1)
[2021-03-15 13:59] LABS: ALBUMIN 4.1 g/dl (3.4-5.0); BLOOD UREA NITROGEN 15.8 mg/dL (7-18)
[2021-03-15 14:03] LABS: BILIRUBIN,TOTAL 0.2 mg/dL (0.2-1)
[2021-03-15 14:06] LABS: CREATININE 0.9 mg/dL (0.55-1.3)
[2021-03-15 15:11] VITALS: BP 105/76; PULSE 73
== END 2021-03-15 17:08 | disposition home or self-care (01) ==
LOC: JER 12:26
PROC: 3E0337Z Introduction of Electrolytic and Water Balance Substance into Peripheral Vein, Percutaneous Approach (ICD-10-PCS; principal; 2021-03-15)
DX: R42 Dizziness and giddiness (principal)
CPT/HCPCS: 36415; 80053; 81003; 84703; 85025; 87086; 93005; 93010; 99285-25

== ENCOUNTER 2022-02-25 20:51 | Emergency (ER) | payer OTHER ==
[2022-02-25 20:58] VITALS: TEMP 98.4; BMI 33.2
[2022-02-25] MEDS ORDERED: LIDOCAINE 5% TOPICAL PATCH TP ONE (21:49)
[2022-02-25] MEDS ORDERED: KETOROLAC TROMETHAMINE 30 MG/1 ML VIAL IM ONE (21:49)
[2022-02-25] MEDS ORDERED: LIDOCAINE 5% TOPICAL PATCH ONE (21:51)
[2022-02-25] MEDS ORDERED: KETOROLAC TROMETHAMINE 30 MG/1 ML VIAL ONE (21:51)
[2022-02-25] MEDS ORDERED: LIDOCAINE PATCH REMOVAL MC SCH (22:00)
[2022-02-25 22:37] VITALS: BP 147/77; PULSE 79
== END 2022-02-25 22:37 | disposition home or self-care (01) ==
LOC: JERFT 20:51
PROC: 3E0233Z Introduction of Anti-inflammatory into Muscle, Percutaneous Approach (ICD-10-PCS; principal; 2022-02-25)
DX: M54.50 Low back pain, unspecified (principal)
CPT/HCPCS: 99284-25